=== PATIENT | male | born 1970 | race Caucasian/White ===

== ENCOUNTER 2020-08-09 19:35 | Inpatient (IN) ==
[2020-08-09 20:50] LABS: Hematocrit 40.8 % (37.5-50.1); Hemoglobin 13.2 g/dL (12.9-16.9); Mean Corpuscular HGB Conc 32.4 g/dL (31.6-35.5); Mean Corpuscular Hemoglobin 30.6 pg (28.0-33.3); Mean Corpuscular Volume 94.7 fL (83.0-100.0); Platelet Count 169 K/mcL (140-400); Red Blood Count 4.31 M/mcL (4.19-5.50); Red Cell Distribution Width 14.6 % (11.5-14.5); White Blood Count 8.7 K/mcL (4.3-11.1)
[2020-08-09] MEDS ORDERED: Isovue-370 500 ML BOTTLE IVP ONE (21:01)
[2020-08-09 21:20] LABS: BUN/Creatinine Ratio 18 (6-26); Blood Urea Nitrogen 23 mg/dL (6-20); Calcium 8.5 mg/dL (8.6-10.3); Carbon Dioxide 22 mEq/L (23-29); Chloride 108 mEq/L (98-107); Glucose 110 mg/dL (70-105); Osmolality,Calculated 290 (280-300); Potassium 4.4 mEq/L (3.5-5.1); Sodium 138 mEq/L (136-145); Troponin I 0.04 ng/mL (< 0.04); eGFR For African Americans > 60 (> 60); eGFR For Non-African Americans > 60 (> 60)
[2020-08-09] MEDS ORDERED: Furosemide 20 MG/2 ML VIAL IVP ONE (22:30)
[2020-08-09] MEDS ORDERED: Naloxone 0.4 MG/ML INJ IVP PRN (23:04)
[2020-08-09] MEDS ORDERED: Ondansetron 4 MG/2 ML VIAL IVP PRN (23:04)
[2020-08-09] MEDS ORDERED: Acetaminophen 325 MG TABLET PO PRN (23:04)
[2020-08-09] MEDS ORDERED: Perflutren Lipid Microsphere 1.3 ML in 0.9 % Sodium Chloride 8.7 ML IVP PRN (23:06)
[2020-08-09 23:47] LABS: Bilirubin,Urine Negative (Negative); Blood,Urine Trace (Negative); Clarity,Urine Clear (Clear); Color,Urine Yellow (Yellow); Glucose,Urine (UA) Normal (Normal); Ketones,Urine Negative (Negative); Leukocyte Esterase,Urine Negative (Negative); Mucus,Urine Few per lpf (None-Few); Nitrite,Urine Negative (Negative); Protein,Urine 100 mg/dL (Neg-Trace); RBC,Urine 0-3 per hpf (0-3); Specific Gravity,Urine > 1.030 (1.010-1.025); Squamous Epithelial Cell,Urine Few per hpf (None-Few); WBC,Urine 0-3 per hpf (0-3)
[2020-08-10] LABS: Amphetamine Screen,Urine Positive ng/mL (Cutoff=1000); Barbiturate Screen,Urine Negative ng/mL (Cutoff=200); Benzodiazepines Screen,Urine Negative ng/mL (Cutoff=200); Cannabinoid Screen,Urine Positive ng/mL (Cutoff = 50); Cocaine Screen,Urine Negative ng/mL (Cutoff= 300); Opiate Screen,Urine Negative ng/mL (Cutoff=300); Phencyclidine Screen,Urine Negative ng/mL (Cutoff=25)
[2020-08-10 07:54] LABS: Basophils # 0.1 K/mcL (0.0-0.2); Basophils % 0.5 %; Eosinophils # 0.2 K/mcL (0.0-0.6); Eosinophils % 1.6 %; Hematocrit 42.9 % (37.5-50.1); Hemoglobin 14.3 g/dL (12.9-16.9); Immature Granulocytes % 0.4 % (0-4); Lymphocytes # 1.7 K/mcL (0.6-4.6); Mean Corpuscular HGB Conc 33.3 g/dL (31.6-35.5); Mean Corpuscular Hemoglobin 31.6 pg (28.0-33.3); Mean Corpuscular Volume 94.9 fL (83.0-100.0); Mean Platelet Volume 10.2 fL (9.4-12.4); Monocytes # 0.9 K/mcL (0.0-1.3); Monocytes % 9.4 %; Neutrophils # 6.5 K/mcL (1.6-8.9); Platelet Count 177 K/mcL (140-400); Red Blood Count 4.52 M/mcL (4.19-5.50); Red Cell Distribution Width 14.6 % (11.5-14.5); Segmented Neutrophils % 70.1 %; White Blood Count 9.3 K/mcL (4.3-11.1)
[2020-08-10 08:01] LABS: INR 1.2; Prothrombin Time 13.9 Seconds (9.4-12.1)
[2020-08-10 08:20] LABS: Troponin I 0.04 ng/mL (< 0.04)
[2020-08-10 08:48] LABS: Alanine Aminotransferase 15 Units/L (7-52); Albumin 3.5 g/dL (3.5-5.7); Albumin/Globulin Ratio 1.4 (1.1-2.2); Alkaline Phosphatase 86 Units/L (34-104); Aspartate Amino Transferase 23 Units/L (13-39); BUN/Creatinine Ratio 16 (6-26); Blood Urea Nitrogen 19 mg/dL (6-20); Calcium 8.7 mg/dL (8.6-10.3); Carbon Dioxide 23 mEq/L (23-29); Chloride 104 mEq/L (98-107); Chol/HDL Ratio 4.1 (0-4.9); Cholesterol 143 mg/dL (< 200); Globulin 2.5 g/dL (2.4-3.5); Glucose 83 mg/dL (70-105); HDL Cholesterol 35 mg/dL (40-59); LDL Cholesterol,Calculated 96 mg/dL (< 100); Magnesium 1.8 mg/dL (1.6-2.6); Osmolality,Calculated 289 (280-300); Potassium 4.1 mEq/L (3.5-5.1); Sodium 139 mEq/L (136-145); Thyroid Stimulating Hormone 1.385 mcIU/mL (0.340-5.600); Triglycerides 61 mg/dL (< 150); eGFR For African Americans > 60 (> 60); eGFR For Non-African Americans > 60 (> 60)
[2020-08-10] MEDS: Nicotine 21 MG PATCH.TD24 TD SCH (09:22)
[2020-08-10 12:06] LABS: Estimated Average Glucose 111 mg/dl; Hemoglobin A1C 5.5 %
[2020-08-10] MEDS: Furosemide 40 MG/4 ML VIAL IVP SCH (13:20)
[2020-08-10] MEDS ORDERED: *HR* LORazepam 2 MG/ML VIAL IVP ONE (16:51)
[2020-08-10] MEDS ORDERED: *HR* LORazepam 2 MG/ML VIAL IVP PRN ×3 (17:04)
[2020-08-10] MEDS ORDERED: Dexmedetomidine HCl 200 MCG/50 ML MLS IVC SCH (23:15)
[2020-08-11 05:10] LABS: BUN/Creatinine Ratio 17 (6-26); Blood Urea Nitrogen 19 mg/dL (6-20); Calcium 8.7 mg/dL (8.6-10.3); Carbon Dioxide 25 mEq/L (23-29); Chloride 103 mEq/L (98-107); Glucose 81 mg/dL (70-105); Osmolality,Calculated 289 (280-300); Sodium 139 mEq/L (136-145); eGFR For African Americans > 60 (> 60); eGFR For Non-African Americans > 60 (> 60)
[2020-08-11] MEDS: Dexmedetomidine HCl 400 MCG/100 ML MLS IVC SCH (08:17)
[2020-08-11] MEDS: Nicotine 21 MG PATCH.TD24 TD SCH ×2 (08:18→08:25)
[2020-08-11] MEDS: Furosemide 40 MG/4 ML VIAL IVP SCH (08:18)
[2020-08-11] MEDS: Folic Acid 1 MG TABLET PO SCH (08:26)
[2020-08-11] MEDS: Thiamine (B-1) 100 MG TABLET PO SCH (08:26)
[2020-08-11] MEDS: Aspirin 81 MG TAB.CHEW PO SCH (12:11)
[2020-08-11] MEDS: lisinopriL 5 MG TABLET PO SCH (15:08)
[2020-08-11] MEDS: carvediloL 6.25 MG TABLET PO SCH (16:55)
[2020-08-11] MEDS ORDERED: QUEtiapine Fumarate 25 MG TABLET PO SCH (21:00)
[2020-08-12 02:15] LABS: BUN/Creatinine Ratio 17 (6-26); Blood Urea Nitrogen 21 mg/dL (6-20); Calcium 8.5 mg/dL (8.6-10.3); Carbon Dioxide 25 mEq/L (23-29); Chloride 103 mEq/L (98-107); Glucose 97 mg/dL (70-105); Osmolality,Calculated 289 (280-300); Potassium 3.9 mEq/L (3.5-5.1); Sodium 138 mEq/L (136-145); eGFR For African Americans > 60 (> 60); eGFR For Non-African Americans > 60 (> 60)
[2020-08-12] MEDS ORDERED: Spironolactone 25 MG TABLET PO SCH (09:00)
[2020-08-12] MEDS: carvediloL 6.25 MG TABLET PO SCH (09:26)
[2020-08-12] MEDS: lisinopriL 5 MG TABLET PO SCH (09:26)
[2020-08-12] MEDS: Thiamine (B-1) 100 MG TABLET PO SCH (09:26)
[2020-08-12] MEDS: Furosemide 40 MG/4 ML VIAL IVP SCH (09:26)
[2020-08-12] MEDS: Folic Acid 1 MG TABLET PO SCH (09:26)
[2020-08-12] MEDS: Aspirin 81 MG TAB.CHEW PO SCH (09:26)
[2020-08-12] MEDS: Dexmedetomidine HCl 400 MCG/100 ML MLS IVC SCH (09:27)
[2020-08-12] MEDS: Nicotine 21 MG PATCH.TD24 TD SCH (09:27)
[2020-08-12 11:32] VITALS: BP 115/99
[2020-08-13] MEDS ORDERED: Furosemide 20 MG TABLET PO SCH (08:00)
== END 2020-08-12 13:09 | disposition left against medical advice (07) | DRG 292 ==
LOC: CDU 19:35 → EMEROOARM 19:35 → SUATTDRO 23:45 → CDU 08-10 00:05 → 2NNU 08-10 22:07
PROVIDERS: ADMIT Internal Medicine; ATTEND Student in an Organized Health Care Education/Training Program

== ENCOUNTER 2020-08-17 09:13 | Observation (INO) ==
[2020-08-17] MEDS ORDERED: Furosemide 40 MG/4 ML VIAL IVP ONE (09:21)
[2020-08-17] MEDS ORDERED: Nitroglycerin 1 INCH/GM PACKET TP ONE (09:46)
[2020-08-17 09:59] LABS: Basophils # 0.1 K/mcL (0.0-0.2); Basophils % 0.6 %; Eosinophils # 0.2 K/mcL (0.0-0.6); Eosinophils % 1.6 %; Immature Granulocytes % 0.3 % (0-4); Lymphocytes # 1.6 K/mcL (0.6-4.6); Mean Corpuscular HGB Conc 31.9 g/dL (31.6-35.5); Mean Corpuscular Hemoglobin 30.4 pg (28.0-33.3); Mean Corpuscular Volume 95.3 fL (83.0-100.0); Mean Platelet Volume 10.2 fL (9.4-12.4); Monocytes # 0.8 K/mcL (0.0-1.3); Monocytes % 7.7 %; Neutrophils # 7.4 K/mcL (1.6-8.9); Platelet Count 162 K/mcL (140-400); Red Blood Count 4.93 M/mcL (4.19-5.50); Red Cell Distribution Width 14.8 % (11.5-14.5); Segmented Neutrophils % 73.8 %
[2020-08-17 10:32] LABS: Troponin I 0.07 ng/mL (< 0.04)
[2020-08-17 11:12] LABS: BUN/Creatinine Ratio 17 (6-26); Blood Urea Nitrogen 18 mg/dL (6-20); Calcium 8.9 mg/dL (8.6-10.3); Carbon Dioxide 22 mEq/L (23-29); Chloride 108 mEq/L (98-107); Glucose 110 mg/dL (70-105); Osmolality,Calculated 289 (280-300); Potassium 4.9 mEq/L (3.5-5.1); Sodium 138 mEq/L (136-145); eGFR For African Americans > 60 (> 60); eGFR For Non-African Americans > 60 (> 60)
[2020-08-17] MEDS ORDERED: Ondansetron ODT 4 MG TAB.RAPDIS SL PRN (11:37)
[2020-08-17] MEDS ORDERED: Acetaminophen 325 MG TABLET PO PRN (11:37)
[2020-08-17 12:33] LABS: INR 1.1; Prothrombin Time 12.2 Seconds (9.4-12.1)
[2020-08-17 12:38] LABS: Cholesterol 155 mg/dL (< 200); HDL Cholesterol 52 mg/dL (40-59); LDL Cholesterol,Calculated 93 mg/dL (< 100); Triglycerides 52 mg/dL (< 150)
[2020-08-17] MEDS ORDERED: Aspirin 325 MG TABLET PO ONE (12:45)
[2020-08-17] MEDS: Metoprolol XL (24 HR) Succ 25 MG TAB.ER.24H PO SCH (12:59)
[2020-08-17 14:36] LABS: Amphetamine Screen,Urine Negative ng/mL (Cutoff=1000); Barbiturate Screen,Urine Negative ng/mL (Cutoff=200); Benzodiazepines Screen,Urine Negative ng/mL (Cutoff=200); Cannabinoid Screen,Urine Positive ng/mL (Cutoff = 50); Cocaine Screen,Urine Negative ng/mL (Cutoff= 300); Opiate Screen,Urine Negative ng/mL (Cutoff=300); Phencyclidine Screen,Urine Negative ng/mL (Cutoff=25)
[2020-08-17] MEDS: Nicotine 21 MG PATCH.TD24 TD SCH (15:26)
[2020-08-17] MEDS: Furosemide 40 MG/4 ML VIAL IVP SCH (20:11)
[2020-08-18 00:44] LABS: Hematocrit 49.1 % (37.5-50.1); Hemoglobin 16.7 g/dL (12.9-16.9); Mean Corpuscular Hemoglobin 31.4 pg (28.0-33.3); Mean Corpuscular Volume 92.3 fL (83.0-100.0); Mean Platelet Volume 10.2 fL (9.4-12.4); Platelet Count 183 K/mcL (140-400); Red Blood Count 5.32 M/mcL (4.19-5.50); Red Cell Distribution Width 14.2 % (11.5-14.5); White Blood Count 10.9 K/mcL (4.3-11.1)
[2020-08-18 01:01] LABS: BUN/Creatinine Ratio 17 (6-26); Blood Urea Nitrogen 19 mg/dL (6-20); Calcium 9.3 mg/dL (8.6-10.3); Carbon Dioxide 26 mEq/L (23-29); Chloride 101 mEq/L (98-107); Glucose 111 mg/dL (70-105); Magnesium 1.8 mg/dL (1.6-2.6); Osmolality,Calculated 287 (280-300); Potassium 3.9 mEq/L (3.5-5.1); Sodium 137 mEq/L (136-145); eGFR For African Americans > 60 (> 60); eGFR For Non-African Americans > 60 (> 60)
[2020-08-18 01:05] LABS: Troponin I 0.07 ng/mL (< 0.04)
[2020-08-18] MEDS: *HR* Enoxaparin 40 MG/0.4 ML SYRINGE SQ SCH (05:44)
[2020-08-18] MEDS: Furosemide 40 MG/4 ML VIAL IVP SCH (09:13)
[2020-08-18] MEDS: Nicotine 21 MG PATCH.TD24 TD SCH (09:14)
[2020-08-18] MEDS: Metoprolol XL (24 HR) Succ 25 MG TAB.ER.24H PO SCH (09:14)
[2020-08-18] MEDS: Aspirin 81 MG TAB.CHEW PO SCH (09:14)
[2020-08-18] MEDS ORDERED: Aspirin 325 MG TABLET PO ONE (11:42)
[2020-08-18] MEDS: Furosemide 40 MG TABLET PO SCH (16:49)
[2020-08-19 03:54] LABS: BUN/Creatinine Ratio 23 (6-26); Blood Urea Nitrogen 29 mg/dL (6-20); Calcium 9.2 mg/dL (8.6-10.3); Carbon Dioxide 25 mEq/L (23-29); Chloride 99 mEq/L (98-107); Glucose 99 mg/dL (70-105); Osmolality,Calculated 286 (280-300); Potassium 4.1 mEq/L (3.5-5.1); Sodium 135 mEq/L (136-145); eGFR For African Americans > 60 (> 60); eGFR For Non-African Americans 59 (> 60)
[2020-08-19] MEDS: *HR* Enoxaparin 40 MG/0.4 ML SYRINGE SQ SCH (05:32)
[2020-08-19] MEDS: Aspirin 81 MG TAB.CHEW PO SCH (09:44)
[2020-08-19] MEDS: Furosemide 40 MG TABLET PO SCH (09:45)
[2020-08-19] MEDS: Metoprolol XL (24 HR) Succ 25 MG TAB.ER.24H PO SCH (09:45)
[2020-08-19] MEDS: Nicotine 21 MG PATCH.TD24 TD SCH (09:45)
[2020-08-19 11:47] VITALS: BP 122/89
== END 2020-08-19 12:41 | disposition home or self-care (01) ==
LOC: EMEROOARM 09:13 → 2ANU 09:13 → SUATTDRO 12:19 → 2ANU 12:54
PROVIDERS: ADMIT Internal Medicine; ATTEND Internal Medicine

== ENCOUNTER 2021-09-08 18:19 | Inpatient (IN) ==
[2021-09-08] MEDS ORDERED: Ondansetron 4 MG/2 ML VIAL IVP ONE (18:25)
[2021-09-08] MEDS ORDERED: Famotidine 20 MG/2 ML VIAL IVP ONE (18:26)
[2021-09-08] MEDS ORDERED: Iopamidol - 370 500 ML MLS IVP ONE ×2 (18:27→19:40)
[2021-09-08] MEDS ORDERED: Acetaminophen 325 MG TABLET PO ONE (18:30)
[2021-09-08 18:54] LABS: Basophils % 0.2 %; Hemoglobin 13.8 g/dL (12.9-16.9); Immature Granulocytes % 0.6 % (0-4); Lymphocytes # 0.7 K/mcL (0.6-4.6); Lymphocytes % 4.2 %; Mean Corpuscular HGB Conc 33.7 g/dL (31.6-35.5); Mean Corpuscular Hemoglobin 31.1 pg (28.0-33.3); Mean Corpuscular Volume 92.3 fL (83.0-100.0); Mean Platelet Volume 10.7 fL (9.4-12.4); Monocytes # 0.9 K/mcL (0.0-1.3); Monocytes % 5.4 %; Neutrophils # 15.6 K/mcL (1.6-8.9); Platelet Count 147 K/mcL (140-400); Red Blood Count 4.44 M/mcL (4.19-5.50); Red Cell Distribution Width 14.9 % (11.5-14.5); Segmented Neutrophils % 89.6 %; White Blood Count 17.4 K/mcL (4.3-11.1)
[2021-09-08] MEDS: 0.9 % Sodium Chloride 1,000 ML IVC SCH ×2 (18:54→19:38)
[2021-09-08 19:03] LABS: INR 1.7; Prothrombin Time 18.7 Seconds (9.4-12.1)
[2021-09-08 19:05] LABS: Activated Partial Thrombo Time 35.3 Seconds (26.0-36.0)
[2021-09-08 19:36] LABS: Albumin 3.4 g/dL (3.5-5.7); Albumin/Globulin Ratio 1.3 (1.1-2.2); Bilirubin,Direct 1.5 mg/dL (0.0-0.2); Bilirubin,Indirect 2.2 mg/dL (0.0-1.0); Bilirubin,Total 3.7 mg/dL (0.3-1.0); Calcium 8.4 mg/dL (8.6-10.3); Globulin 2.7 g/dL (2.4-3.5); Potassium 3.9 mEq/L (3.5-5.1); Total Protein 6.1 g/dL (6.4-8.9); Troponin I 0.09 ng/mL (< 0.04)
[2021-09-08 19:49] LABS: Influenza A PCR Negative (Negative); Influenza B PCR Negative (Negative); Resp. Syncytial Virus PCR Negative (Negative)
[2021-09-08 19:50] LABS: SARS-CoV-2 by PCR (In House) Negative (Negative)
[2021-09-08] MEDS ORDERED: 0.9 % Sodium Chloride 1,000 ML IVC ONE (19:54)
[2021-09-08] MEDS ORDERED: Piperacillin/Tazobactam 3.375 GM in 0.9 % Sodium Chloride Mini Bag 100 ML IVPB ONE (20:00)
[2021-09-08] MEDS ORDERED: Ondansetron 4 MG/2 ML VIAL IVP PRN (22:11)
[2021-09-08] MEDS ORDERED: Naloxone 0.4 MG/ML INJ IVP PRN (22:11)
[2021-09-08] MEDS ORDERED: Acetaminophen 325 MG TABLET PO PRN (22:11)
[2021-09-08] MEDS ORDERED: Perflutren Lipid Microsphere 1.3 ML in 0.9 % Sodium Chloride 8.7 ML IVP PRN (23:11)
[2021-09-08 23:25] LABS: Bacteria,Urine Few per hpf (None-Few); Bilirubin,Urine Small (Negative); Blood,Urine Large (Negative); Clarity,Urine Turbid (Clear); Color,Urine Dark-Yellow (Yellow); Glucose,Urine (UA) Normal (Normal); Hyaline Casts,Urine Few per lpf (None Seen); Ketones,Urine Trace mg/dL (Negative); Leukocyte Esterase,Urine Negative (Negative); Mucus,Urine Few per lpf (None-Few); Nitrite,Urine Negative (Negative); Protein,Urine >=600 mg/dL (Neg-Trace); Specific Gravity,Urine > 1.030 (1.010-1.025); Squamous Epithelial Cell,Urine Few per hpf (None-Few); Urobilinogen,Urine >=8.0 mg/dL (Normal)
[2021-09-08 23:40] LABS: Amphetamine Screen,Urine Negative ng/mL (Cutoff=1000); Barbiturate Screen,Urine Negative ng/mL (Cutoff=200); Benzodiazepines Screen,Urine Negative ng/mL (Cutoff=200); Cannabinoid Screen,Urine Positive ng/mL (Cutoff = 50); Cocaine Screen,Urine Negative ng/mL (Cutoff= 300); Opiate Screen,Urine Negative ng/mL (Cutoff=300); Phencyclidine Screen,Urine Negative ng/mL (Cutoff=25)
[2021-09-09] MEDS ORDERED: levoFLOXacin 750 MG/150 ML 750 MG/150 ML BAG IVPB SCH ×2
[2021-09-09 02:48] LABS: Basophils % 0.2 %; Hemoglobin 12.6 g/dL (12.9-16.9); Immature Granulocytes % 0.9 % (0-4); Lymphocytes # 0.4 K/mcL (0.6-4.6); Lymphocytes % 3.2 %; Mean Corpuscular HGB Conc 33.2 g/dL (31.6-35.5); Mean Corpuscular Hemoglobin 31.3 pg (28.0-33.3); Mean Corpuscular Volume 94.3 fL (83.0-100.0); Mean Platelet Volume 11.3 fL (9.4-12.4); Monocytes # 0.8 K/mcL (0.0-1.3); Monocytes % 5.7 %; Neutrophils # 12.4 K/mcL (1.6-8.9); Platelet Count 112 K/mcL (140-400); Red Blood Count 4.03 M/mcL (4.19-5.50); Red Cell Distribution Width 15.2 % (11.5-14.5); White Blood Count 13.7 K/mcL (4.3-11.1)
[2021-09-09 02:57] LABS: INR 1.8; Prothrombin Time 19.7 Seconds (9.4-12.1)
[2021-09-09 03:12] LABS: Albumin/Globulin Ratio 1.2 (1.1-2.2); Bilirubin,Direct 1.6 mg/dL (0.0-0.2); Bilirubin,Indirect 1.8 mg/dL (0.0-1.0); Bilirubin,Total 3.4 mg/dL (0.3-1.0); Calcium 7.5 mg/dL (8.6-10.3); Globulin 2.5 g/dL (2.4-3.5); Magnesium 1.6 mg/dL (1.6-2.6); Phosphorous 2.7 mg/dL (2.7-4.5); Potassium 4.2 mEq/L (3.5-5.1); Total Protein 5.5 g/dL (6.4-8.9)
[2021-09-09 03:24] LABS: Thyroid Stimulating Hormone 1.805 mcIU/mL (0.340-5.600)
[2021-09-09 04:14] LABS: Adenovirus Not Detected (Not Detect); Bordetella Pertussis Not Detected (Not Detect); Chlamydophila pneumoniae Not Detected (Not Detect); Coronavirus 229E Not Detected (Not Detect); Coronavirus HKU1 Not Detected (Not Detect); Coronavirus NL63 Not Detected (Not Detect); Coronavirus OC43 Not Detected (Not Detect); Human Metapneumovirus Not Detected (Not Detect); Human Rhinovirus/Enterovirus Not Detected (Not Detect); Influenza A Subtype 2009 H1 Not Detected (Not Detect); Influenza B Not Detected (Not Detect); Mycoplasma pneumoniae Not Detected (Not Detect); Parainfluenza Virus 1 Not Detected (Not Detect); Parainfluenza Virus 2 Not Detected (Not Detect); Parainfluenza Virus 3 Not Detected (Not Detect); Parainfluenza Virus 4 Not Detected (Not Detect); Respiratory Syncytial Virus Not Detected (Not Detect); SARS-CoV-2 Not Detected (Not Detect)
[2021-09-09 04:30] LABS: Estimated Average Glucose 100 mg/dl; Hemoglobin A1C 5.1 %
[2021-09-09 04:37] LABS: Hepatitis B Surface Antigen Nonreactive (Nonreactive)
[2021-09-09 05:06] LABS: Hepatitis B Core IgM Nonreactive (Nonreactive); Hepatitis C Virus Antibody Nonreactive (Nonreactive)
[2021-09-09 05:08] LABS: Hepatitis A Antibody IgM Nonreactive (Nonreactive)
[2021-09-09] MEDS ORDERED: Calcium Gluconate 1gm/50mL 1 GM/50 ML BAG IVPB ONE (05:44)
[2021-09-09] MEDS ORDERED: 0.9 % Sodium Chloride 1,000 ML IVC SCH (05:45)
[2021-09-09] MEDS: Cefepime HCl 1,000 MG in 0.9 % Sodium Chloride 10 ML IVPB SCH ×2 (05:53→17:38)
[2021-09-09] MEDS: Pantoprazole 40 MG VIAL IVP SCH ×2 (05:53→17:39)
[2021-09-09 10:07] LABS: Calcium 7.6 mg/dL (8.6-10.3)
[2021-09-09 10:09] LABS: Troponin I 0.05 ng/mL (< 0.04)
[2021-09-09] MEDS ORDERED: *HR* Propofol 200 MG/20 ML VIAL IVP ONE (11:03)
[2021-09-09] MEDS ORDERED: Lidocaine HCL 4 ML Topical Solution (Laryng-O-Jet Kit Sterile Pak) TP ONE (11:04)
[2021-09-09] MEDS ORDERED: *HR* Succinylcholine 200 MG/10 ML VIAL IVP ONE (11:04)
[2021-09-09] MEDS ORDERED: Lidocaine -MPF 2% 2 ML VIAL ONE (11:04)
[2021-09-09] MEDS ORDERED: *HR* FentaNYL (PF) 100 MCG/2 ML VIAL ONE (11:04)
[2021-09-09] MEDS ORDERED: *HR* Rocuronium Bromide 50 MG/5 ML VIAL ONE (11:04)
[2021-09-09] MEDS ORDERED: Ondansetron 4 MG/2 ML VIAL ONE (11:04)
[2021-09-09] MEDS ORDERED: Ondansetron 4 MG/2 ML VIAL IVP PRN (11:07)
[2021-09-09] MEDS ORDERED: *HR* Meperidine 25 MG/ML SYRINGE IVP PRN (11:07)
[2021-09-09] MEDS ORDERED: *HR* Labetalol 20 MG/4 ML SYRINGE IVP PRN (11:07)
[2021-09-09] MEDS ORDERED: Racepinephrine Neb 0.5 ML VIAL IH PRN (11:07)
[2021-09-09] MEDS ORDERED: *HR* FentaNYL (PF) 100 MCG/2 ML VIAL IVP PRN (11:07)
[2021-09-09] MEDS ORDERED: Albuterol 2.5 MG/3 ML NEBULIZER IH PRN (11:07)
[2021-09-09] MEDS ORDERED: Ipratropium Neb 0.5 MG NEBULIZER IH PRN (11:07)
[2021-09-09] MEDS ORDERED: Acetaminophen IV 1,000 MG/100 ML BAG IVPB PRN (11:07)
[2021-09-09 11:52] VITALS: O2SAT 94
[2021-09-09 17:17] VITALS: BP 117/54; PULSE 130; TEMP 98.4
[2021-09-09] MEDS ORDERED: *HR* Metoprolol 5 MG/5 ML VIAL IVP PRN (17:23)
[2021-09-09] MEDS ORDERED: *HR* LORazepam 2 MG/ML VIAL IVP ONE (17:23)
[2021-09-09] MEDS ORDERED: 0.9 % Sodium Chloride Mini Bag 100 ML ONE (18:59)
[2021-09-09] MEDS ORDERED: *HR* EPINEPHrine 1 MG/10 ML SYRINGE ONE (19:01)
[2021-09-09] MEDS ORDERED: Sodium Bicarbonate 50 MEQ/50 ML VIAL ONE (19:08)
== END 2021-09-09 19:09 | disposition short-term general hospital (02) | DRG 871 ==
LOC: 2ANU 18:19 → EMEROOARM 18:19 → 2ANU 21:50 → SUATTDRO 22:11
PROVIDERS: ADMIT Internal Medicine; ATTEND Family Medicine